=== PATIENT | female | born 1985 | race Caucasian/White ===

== ENCOUNTER 2016-10-04 05:15 | Inpatient (IN) | payer OTHER ==
--- NOTE | ~2016-10-04 | OR ---
ADMIT: 10/04/2016 RM/LOC: [facility] MR#: [id number] [address] IVANNA ACOSTA [address] [place] [address] Operative/Delivery Room Report SEX: F AGE: 31 : 1985 SURGERY DATE: 10/04/2016 SURGEON: Ciara Gross MD PREOPERATIVE DIAGNOSES: 1. Intrauterine at 39-1/7 weeks' gestation. 2. Active labor. 3. Previous section. 4. Footling breech presentation. POSTOPERATIVE DIAGNOSES: 1. Intrauterine at 39-1/7 weeks' gestation. 2. Active labor. 3. Previous section. 4. Footling breech presentation. 5. Delivery of a viable female infant at 0541 hour, weighing 7 pounds 15.5 ounces with scores of 8 at 1 minute and 9 at 5 minute. PROCEDURE: Emergent repeat low-transverse section. CONSTRUCTION EQUIPMENT MECHANIC HELPER: Jenn Javed MD and Vivi Ibrahim MD Resident ANESTHESIA: General. COMPLICATIONS: None. ESTIMATED BLOOD LOSS: 700 mL. FLUIDS: Crystalloid. INDICATIONS: This is a 31-year-old female, 3, para 2, who presented to the [facility] with an intrauterine at 39-1/7 weeks' gestation by reported estimated date of confinement. Her care has been in [place]. Her has been complicated by history of a previous as well as a history of a previous successful . This baby has been breech and she had been planning a repeat if it did not spontaneously vert. She reported contractions starting the evening prior to presentation, but were irregular in nature. On the morning of presentation to the [facility], she did experience spontaneous rupture of membranes and meconium-stained fluid was noted. At the time of initial evaluation, she was noted to be completely dilated with mild presentation of possible arm or leg. Quick ultrasound did confirm breech presentation. We did quickly discussed the risks, benefits, and alternatives to a repeat and she agreed to proceed. FINDINGS: Normal maternal uterus, tubes, and ovaries. Female at 0541 hours, weighing 7 pounds 15.5 ounces with scores of 8 at 1 minute and 9 at 5 minutes and a nuchal cord x2. ADMIT: 10/04/2016 RM/LOC: 215 [facility] MR#: [id number] [address] IVANNA ACOSTA [address] [place] [address] Operative/Delivery Room Report SEX: F AGE: 31 : 1985 PROCEDURE IN DETAIL: The patient was properly identified. Informed consent was obtained. She was then taken to the operating room, where she was placed in the dorsal supine position with a leftward tilt and prepped and draped in usual sterile fashion. A Summers catheter was inserted within the bladder. She was then prepped and draped in the usual sterile fashion. General anesthesia was then administered, and once this was obtained, a Pfannenstiel skin incision was made with the scalpel. This was carried through to the underlying layer of fascia. The fascia was incised in the midline and the incision was extended laterally using the Farias scissors. The superior aspect of the fascia was grasped with Heraclio clamps, elevated, and the underlying rectus muscles were dissected off. Attention was then turned to the inferior aspect of the fascia, which was grasped with Heraclio clamps, elevated, and the underlying rectus muscles were dissected off. The rectus muscles were in the midline. The peritoneum was identified, and already noted to be entered. Peritoneal incision was then extended with a stretch maneuver. The bladder blade was placed. The vesicouterine peritoneum was identified, grasped with pickups, and entered sharply with the Metzenbaum scissors. The incision was extended laterally and a bladder flap was created digitally. The bladder blade was then replaced and the lower uterine segment was incised in a transverse fashion with the scalpel. The uterine incision was then extended with the stretch maneuver. At this time, the 's one leg did deliver through the uterine incision, did reach and pulled the second leg up through the uterine incision and delivered the breech. The was rotated so that the right arm was the anterior, this arm was swept in front of the infant's body and delivered through the uterine incision and rotated the fetus so the left arm was anterior, swept this in front of the infant's body and delivered this. The head was then flexed and delivered without any difficulty. A nuchal cord x2 was noted and relieved around the 's vertex. The cord was then clamped x2 and cut, and the infant was taken to the warmer, where nursing personnel were in attendance. She did have a weak cry and movement at this point. Cord blood and cord pH were obtained. The placenta delivered with help from traction and uterine massage. The uterus was exteriorized and cleared of all clot and debris. The uterine incision was then repaired with 0 Vicryl in a running, locked fashion. Two [id number] sutures were placed ADMIT: 10/04/2016 RM/LOC: 215 [facility] MR#: [id number] [address] [place] [id number] IVANNA ACOSTA [address] [place] [id number] Operative/Delivery Room Report SEX: F AGE: 31 : 1985 to obtain excellent hemostasis. The uterus was returned to the abdomen. The gutters were cleared of all clot and debris. The uterine incision was reinspected and noted to be hemostatic. The posterior aspect of the rectus fascia and the rectus muscles were made hemostatic with the use of electrocautery. The rectus fascia was reapproximated with 0 Vicryl in a running, nonlocking fashion. Subcutaneous tissues were made hemostatic with use of electrocautery. They were reapproximated using 2-0 plain. Subcuticular mica and Steri-Strips were applied. The patient tolerated the procedure well. Sponge, lap, needle, and instrument counts were correct. The patient was taken to the recovery room in stable condition. The infant was taken back to the intensive care unit for close observation over the next few hours. Ciara Gross MD/ nelson JOB #: [id number] CC: Ciara Gross, Attending Physician Ciara Gross, Family Physician
[2016-10-05] MEDS ORDERED: MOTRIN-DPS800 MG PO (20:37)
[2016-10-05] MEDS ORDERED: PRENATAL VIT1 TAB PO (20:37)
[2016-10-05] MEDS ORDERED: COLACE-DPS100 MG PO (20:37)
[2016-10-05] MEDS ORDERED: NIPPLECREAM TP (20:38)
[2016-10-05] MEDS ORDERED: FEOSOL-DPS325 MG PO (20:38)
[2016-10-05] MEDS ORDERED: PERCOCET 5 DPS1 TAB PO (20:38)
--- NOTE | 2016-10-15 09:56 | HP ---
ADMIT: 10/04/2016 RM/LOC: [address] [facility] MR#: [id number] [address] IVANNA ACOSTA [address] [place] [address] History and Physical SEX: F AGE: 31 : 1985 DATE OF SERVICE: CHIEF COMPLAINT: Uterine contractions. HISTORY OF PRESENT ILLNESS: This is a 31-year-old female, 3, para 2, who presents to the [facility] with an intrauterine at 39-1/7th weeks' gestation with estimated date of confinement of 10/10/2016. Her estimated date of confinement based off the last menstrual period. Her has been complicated by history of a previous and history of the successful . Her care was with the [place] providers. Her baby was known to be breech presentation and she was planning a repeat C- section versus if the baby spontaneously converted to vertex. She started having contractions on the evening of 10/03/2016. She reports that these were irregular. On the morning of presentation, she did experience spontaneous rupture of membranes. Meconium-stained fluid was noted. At that time, she did present to the hospital for further evaluation. PAST OBSTETRICAL HISTORY: She had one term section after failed version for breech presentation followed by a . Her first baby weighed 7 pounds, 14 ounces. Her second baby weighed 9 pounds, 2 ounces. PAST SURGICAL HISTORY: in 2010. LABORATORY DATA: Blood type is AB positive. Antibody screen negative. Rubella immune. VDRL negative. Hepatitis B surface antigen negative. HIV negative. Group B strep per patient report is positive. SOCIAL HISTORY: She is . She denies tobacco, alcohol, or drug use. ALLERGIES: NO KNOWN DRUG ALLERGIES. CURRENT MEDICATIONS: vitamins. PHYSICAL EXAMINATION: VITAL SIGNS: She is afebrile. Her vital signs are stable. GENERAL: She does appear significantly uncomfortable. ABDOMEN: Soft, gravid, and nontender. EXTREMITIES: Nontender. heart tones are 150s baseline. Moderate variability is present. Variable decelerations to the 60s to 90s were present with uterine contractions and these lasted approximately 60 minutes each. Uterine contractions were every 2 to 3 minutes. Her cervix is completely dilated. There is leg presenting. ADMIT: 10/04/2016 RM/LOC: [address] [facility] MR#: [id number] [address] KARLAIVANNA Fawad [address] [place] [address] History and Physical SEX: F AGE: 31 : 1985 ADMITTING IMPRESSION: 1. This is a 31-year-old female, 3, para 2, with an intrauterine at 39-1/7th weeks' gestation. 2. Active labor. 3. Previous section. 4. Malpresentation, single footling breech presentation. PLAN: At this time, given the position of the fetus, I do recommend proceeding with an emergent section. We did quickly review the risks and benefits and she did give verbal consent. Anesthesia and Surgery have been notified. Ciara Gross MD/ nelson JOB #: [id number] CC: Ciara Gross, Attending Physician Ciara Gross, Family Physician
--- NOTE | 2016-11-26 09:34 | DS ---
ADMIT: 10/04/2016 RM/LOC: 223 [facility] MR#: [id number] [address] IVANNA ACOSTA [address] [place] [address] General Discharge Summary SEX: F AGE: 31 : 1985 ADMISSION DATE: 10/04/2016 DISCHARGE DATE: 10/05/2016 PRIMARY DIAGNOSIS: Status post repeat low transverse section. PROCEDURE PERFORMED: On 10/04/2016, emergent repeat low transverse section. HOSPITAL COURSE: This is a 31-year-old female, 3, para 2, who presented to the [facility] with an intrauterine at 39-1/7th weeks' gestation by her reported estimated date of confinement. Her care was in [place]. Her was complicated by history of a previous as well as history of a previous successful . She reported that her baby had been known to be breech, and she was planning on a repeat C- section if it did not spontaneously turn around. She started lorena on the evening prior to presentation and presented to the [facility] on the morning of presentation secondary to spontaneous rupture of membranes and noted meconium-stained fluid. At the time of initial evaluation, she was noted to be completely dilated with malpresentation of a arm or leg. Ultrasound did confirm breech presentation. We did review the risks, benefits, and alternatives to a section and she agreed to proceed. She did undergo emergent repeat low transverse section under general anesthesia. A female infant was delivered at 0541 hours, weighing 7 pounds 15.5 ounces with scores of 8 at 1 minute, 9 at 5 minutes, and a nuchal cord x2. The was taken to the intensive care unit for close observation. Postoperatively, the patient did well. By the morning of postoperative day #1, she was able to ambulate and void without any difficulty, her pain was well controlled, her postoperative hemoglobin was 9.2. Her was planning to be transferred to [facility], and the patient did request discharge to be with her infant. She was deemed stable for discharge on postoperative day #1, and dismissed to home. DISCHARGE INSTRUCTIONS: She was asked to call with any signs or symptoms of infection including a temperature greater than 100.4 degrees, vaginal bleeding greater than 1 pad an hour, erythema or drainage of her abdominal incision or any erythema or tenderness in her lower extremities or breasts. She was also encouraged to follow up in 2 weeks for an incision check as well as in 6 weeks ADMIT: 10/04/2016 RM/LOC: [address] [facility] MR#: [id number] [address] [place] [id number] IVANNA ACOSTA Fawad [address] [place] [address] General Discharge Summary SEX: F AGE: 31 : 1985 for check. DISCHARGE MEDICATIONS: She was dismissed on: 1. Motrin 800 mg one p.o. q.8 hours p.r.n. pain, #30. 2. Percocet 5/325 mg one to two p.o. q.4 to 6 hours p.r.n. pain, #30. 3. Colace 100 mg p.o. b.i.d. as needed for constipation. 4. Ferrous sulfate 325 mg daily for anemia. 5. She was encouraged to continue her vitamins. CONDITION ON DISCHARGE: Stable. DISPOSITION: The patient was dismissed to home. Ciara Gross MD/ nelson JOB #: [id number] CC: Ciara Gross MD, Attending Physician Ciara Gross MD, Family Physician
== END 2016-10-05 12:08 | disposition home or self-care (01) | DRG 766 ==
LOC: 2LDRP 05:15 → BC 05:15 → 2LDRP 05:17
PROVIDERS: ADMIT Obstetrics & Gynecology
PROC: 10D00Z1 Extraction of Products of Conception, Low, Open Approach (ICD-10-PCS; principal; 2016-10-04)
DX: O32.8XX0 Maternal care for other malpresentation of fetus, not applicable or unspecified (principal); O77.0 Labor and delivery complicated by meconium in amniotic fluid; O34.211 Maternal care for low transverse scar from previous cesarean delivery; O76 Abnormality in fetal heart rate and rhythm complicating labor and delivery; Z3A.39 39 weeks gestation of pregnancy; Z37.0 Single live birth